=== PATIENT | female | born 1990 | race Caucasian/White ===

== ENCOUNTER 2022-08-04 10:07 | Emergency (ER) | payer MEDICAID ==
[~2022-08-04] VITALS: Ht 154.9 cm; Wt 65.0 kg
[2022-08-04 10:20] VITALS: BP 112/62
[2022-08-04 11:32] LABS: CHLORIDE 104 mEq/L (98-107)
[2022-08-04 11:36] LABS: BASOPHILS % 0.3 % (0.0-2.0); EOSINOPHILS % 1.1 % (0.0-5.0); HEMATOCRIT. 35.8 % (42.0-52.0); HEMOGLOBIN. 11.6 g/dL (14.0-18.0); LYMPHOCYTES % 22.8 % (20.0-50.0); MEAN CORPUSCULAR HEMOGLOBIN 26.1 pg (28.0-32.0); MEAN CORPUSCULAR VOLUME 80.2 fL (80.0-94.0); MEAN PLATELET VOLUME 8.9 fl (7.4-10.4); MONOCYTES % 6.5 % (2.0-8.0); NEUTROPHILS % 69.3 % (40.0-76.0); PLATELET 254 x1000/uL (130-400); RED BLOOD CELL COUNT 4.46 mill/uL (4.7-6.1); RED CELL DISTRIBUTION WIDTH 16.4 % (11.6-14.6)
[2022-08-04 12:02] LABS: B-HCG QUANTITATIVE 120602 mIU/mL (<3)
[2022-08-04 12:46] LABS: COLOR URINE YELLOW (YELLOW)
[2022-08-04 12:47] LABS: CLARITY URINE SL.CLOUDY (CLEAR); KETONES URINE NEGATIVE (NEGATIVE); LEUKOCYTE ESTERASE URINE NEGATIVE (NEGATIVE); NITRITE URINE NEGATIVE (NEGATIVE); OCCULT BLOOD URINE NEGATIVE (NEGATIVE); PROTEIN URINE TRACE (NEGATIVE); SPECIFIC GRAVITY URINE 1.015 (1.005-1.030); UROBILINOGEN URINE 0.2 E.U./dL (0.2-1.0)
[2022-08-04] MEDS ORDERED: CEPH250C2 MT (13:22)
== END 2022-08-04 13:35 | disposition home or self-care (01) ==
LOC: ER 10:07 → EDSEX 10:07 → ER 13:35
DX: O26.891 Other specified pregnancy related conditions, first trimester (principal); R10.2 Pelvic and perineal pain; O26.851 Spotting complicating pregnancy, first trimester; Z3A.09 9 weeks gestation of pregnancy
CPT/HCPCS: 36415; 76801; 80053; 81003; 84702; 85025; 86850; 86900; 99284

== ENCOUNTER 2024-01-30 11:49 | Emergency (ER) | payer MEDICAID ==
[~2024-01-30] VITALS: Ht 154.9 cm; Wt 63.5 kg
[~2024-01-30 11:49] MED LIST: CEPH250C2 MT
[2024-01-30 11:59] VITALS: O2SAT 100
[2024-01-30 15:00] VITALS: BP 113/73; PULSE 88; RESP 17; TEMP 98.1
== END 2024-01-30 16:01 | disposition home or self-care (01) ==
LOC: ER 11:58
DX: O26.891 Other specified pregnancy related conditions, first trimester (principal); R51.9 Headache, unspecified; Z3A.09 9 weeks gestation of pregnancy
CPT/HCPCS: 99281

== ENCOUNTER 2024-06-09 20:42 | Emergency (ER) | payer MEDICAID ==
[~2024-06-09] VITALS: Ht 154.9 cm; Wt 67.0 kg
[2024-06-09 20:53] VITALS: O2SAT 98
[2024-06-09 20:59] VITALS: BP 93/34; PULSE 81; RESP 16; TEMP 98.4; O2SAT 98
[2024-06-09 21:39] LABS: CHLORIDE 108 mEq/L (98-107); SODIUM 138 mEq/L (136-145)
[2024-06-09 21:40] LABS: CALCIUM 9.2 mg/dL (8.7-10.4); CARBON DIOXIDE 26 mEq/L (21-32)
[2024-06-09 21:45] LABS: CREATININE 0.5 mg/dL (0.6-1.0); GLUCOSE 89 mg/dL (70-105)
[2024-06-09 21:47] LABS: ALANINE AMINOTRANSFERASE 14 IU/L (10-49); ASPARTATE AMINOTRANSFERASE 16 IU/L (<34); BILIRUBIN TOTAL 0.4 mg/dL (0.1-1.0); PROTEIN TOTAL 6.7 g/dL (6.0-8.3)
[2024-06-09 21:51] LABS: BASOPHILS % 0.2 % (0.0-2.0); DIFFERENTIAL COMMENT 0; HEMATOCRIT. 28.3 % (36.0-48.0); LYMPHOCYTES % 25.9 % (20.0-50.0); MEAN CORPUSCULAR HEMOGLOBIN 24.7 pg (28.0-32.0); MEAN CORPUSCULAR HGB CONC 31.7 g/dL (31.0-37.0); MEAN PLATELET VOLUME 8.3 fl (7.4-10.4); MONOCYTES % 7.4 % (2.0-8.0); NEUTROPHILS % 64.5 % (40.0-76.0); PLATELET 269 x1000/uL (130-400); RED BLOOD CELL COUNT 3.62 mill/uL (4.2-5.4); WHITE BLOOD COUNT 6.6 x1000/uL (4.5-11.0)
[2024-06-09 21:57] LABS: B-HCG QUANTITATIVE 6065 mIU/mL (<3); UREA NITROGEN BLOOD < 5 mg/dL (9-23)
[2024-06-09] MEDS: METOCLOPRAMIDE HCL 10MG/2ML VIAL IV ONE (22:29)
[2024-06-09] MEDS: ACETAMINOPHEN 325MG TABLET PO ONE (22:29)
[2024-06-09] MEDS: LACTATED RINGERS 1,000 ML IV SCH (22:30)
== END 2024-06-10 00:56 | disposition home or self-care (01) ==
LOC: ER 20:42
DX: O26.893 Other specified pregnancy related conditions, third trimester (principal); R51.9 Headache, unspecified; Z3A.30 30 weeks gestation of pregnancy
CPT/HCPCS: 80053; 84702; 85025; 36415; 70450; 76815; 96361; 96374; 99285; J2765; Z7610 ×2

== ENCOUNTER 2024-07-15 21:54 | Emergency (ER) | payer MEDICAID ==
[~2024-07-15] VITALS: Ht 154.9 cm; Wt 70.9 kg
[2024-07-15 22:40] VITALS: O2SAT 98
[2024-07-15] MEDS ORDERED: ALBU90AE INH (23:32)
[2024-07-15 23:40] VITALS: BP 102/62; PULSE 100; RESP 16; TEMP 36.55848; O2SAT 99
== END 2024-07-15 23:45 | disposition home or self-care (01) ==
LOC: ER 21:54
DX: O99.513 Diseases of the respiratory system complicating pregnancy, third trimester (principal); O26.893 Other specified pregnancy related conditions, third trimester; Z3A.33 33 weeks gestation of pregnancy; Z76.0 Encounter for issue of repeat prescription
CPT/HCPCS: 99281

== ENCOUNTER 2024-07-17 15:17 | Emergency (ER) | payer MEDICAID ==
[~2024-07-17] VITALS: Ht 154.9 cm; Wt 69.0 kg
[~2024-07-17 15:17] MED LIST changes: +ALBU90AE INH
[2024-07-17 15:19] VITALS: O2SAT 98
[2024-07-17 15:54] LABS: BASOPHILS % 0.2 % (0.0-2.0); DIFFERENTIAL COMMENT 0; EOSINOPHILS % 1.8 % (0.0-5.0); HEMATOCRIT. 24.5 % (36.0-48.0); HEMOGLOBIN. 7.6 g/dL (12.0-16.0); LYMPHOCYTES % 19.9 % (20.0-50.0); MEAN CORPUSCULAR HEMOGLOBIN 23.1 pg (28.0-32.0); MEAN CORPUSCULAR HGB CONC 31.2 g/dL (31.0-37.0); MEAN PLATELET VOLUME 8.8 fl (7.4-10.4); MONOCYTES % 9.4 % (2.0-8.0); NEUTROPHILS % 68.7 % (40.0-76.0); PLATELET 197 x1000/uL (130-400); RED BLOOD CELL COUNT 3.31 mill/uL (4.2-5.4); RED CELL DISTRIBUTION WIDTH 17.1 % (11.6-14.6); WHITE BLOOD COUNT 5.8 x1000/uL (4.5-11.0)
[2024-07-17 16:01] LABS: CHLORIDE 106 mEq/L (98-107); POTASSIUM 3.6 mEq/L (3.5-5.1); SODIUM 138 mEq/L (136-145)
[2024-07-17 16:02] LABS: CALCIUM 8.7 mg/dL (8.7-10.4); CARBON DIOXIDE 24 mEq/L (21-32)
[2024-07-17 16:07] LABS: CREATININE 0.5 mg/dL (0.6-1.0); GLUCOSE 91 mg/dL (70-105); UREA NITROGEN BLOOD 5 mg/dL (9-23)
[2024-07-17 16:20] LABS: B-HCG QUANTITATIVE 9979 mIU/mL (<3)
[2024-07-17 17:21] LABS: CLARITY URINE CLEAR (CLEAR); COLOR URINE DARK YELLOW (YELLOW); GLUCOSE URINE NEGATIVE (NEGATIVE); KETONES URINE NEGATIVE (NEGATIVE); LEUKOCYTE ESTERASE URINE 2+ (NEGATIVE); NITRITE URINE NEGATIVE (NEGATIVE); OCCULT BLOOD URINE NEGATIVE (NEGATIVE); PROTEIN URINE TRACE (NEGATIVE); SPECIFIC GRAVITY URINE 1.019 (1.005-1.030)
[2024-07-17 17:22] VITALS: BP 104/72; PULSE 87; RESP 15; TEMP 36.72516; O2SAT 100
[2024-07-17] MEDS ORDERED: CEFP200T14 MT (17:30)
[2024-07-17 17:38] LABS: MUCUS URINE 2+ /lpf (< = 2+); SQUAMOUS EPITHELIAL CELL URINE 2+ /lpf (RARE/1+)
[2024-07-17 17:40] LABS: BACTERIA URINE NONE SEEN; RBC URINE 0-2 /hpf (0-2)
== END 2024-07-17 17:50 | disposition home or self-care (01) ==
LOC: ER 15:17
DX: O23.43 Unspecified infection of urinary tract in pregnancy, third trimester (principal); O47.03 False labor before 37 completed weeks of gestation, third trimester; O24.113 Pre-existing type 2 diabetes mellitus, in pregnancy, third trimester; J45.909 Unspecified asthma, uncomplicated; Z3A.35 35 weeks gestation of pregnancy
CPT/HCPCS: 36415; 76815; 80048; 81003; 81025; 84702; 85025; 86850; 86900; 99285

== ENCOUNTER 2025-01-11 10:14 | Emergency (ER) | payer MEDICAID ==
[~2025-01-11] VITALS: Ht 154.9 cm; Wt 62.0 kg
[~2025-01-11 10:14] MED LIST changes: +CEFP200T14 MT
[2025-01-11 10:16] VITALS: O2SAT 98
[2025-01-11 10:34] VITALS: TEMP 36.9; O2SAT 100
[2025-01-11 11:42] VITALS: BP 114/71; PULSE 77; RESP 18; TEMP 98.5
[2025-01-11] MEDS: KETOROLAC 30MG/ML VIAL IM ONE (11:42)
[2025-01-11] MEDS: ACETAMINOPHEN 325MG TABLET PO ONE (11:42)
[2025-01-11 11:57] LABS: BASOPHILS % 0.2 % (0.0-2.0); DIFFERENTIAL COMMENT 0; EOSINOPHILS % 0.9 % (0.0-5.0); HEMATOCRIT. 35.4 % (36.0-48.0); HEMOGLOBIN. 11.2 g/dL (12.0-16.0); LYMPHOCYTES % 14.7 % (20.0-50.0); MEAN CORPUSCULAR HGB CONC 31.7 g/dL (31.0-37.0); MEAN PLATELET VOLUME 8.5 fl (7.4-10.4); NEUTROPHILS % 78.2 % (40.0-76.0); PLATELET 259 x1000/uL (130-400); RED BLOOD CELL COUNT 4.48 mill/uL (4.2-5.4); RED CELL DISTRIBUTION WIDTH 17.5 % (11.6-14.6); WHITE BLOOD COUNT 9.8 x1000/uL (4.5-11.0)
[2025-01-11 12:13] LABS: CHLORIDE 107 mEq/L (98-107); POTASSIUM 4.1 mEq/L (3.5-5.1); SODIUM 141 mEq/L (136-145)
[2025-01-11 12:14] LABS: CARBON DIOXIDE 28 mEq/L (21-32)
[2025-01-11 12:19] LABS: CREATININE 0.6 mg/dL (0.6-1.0); GLUCOSE 101 mg/dL (70-105); UREA NITROGEN BLOOD 10 mg/dL (9-23)
[2025-01-11 12:48] LABS: HCG SCREEN NEGATIVE
[2025-01-11] MEDS ORDERED: IBUP-2029 PO (14:09)
[2025-01-11] MEDS ORDERED: CEPH500C2 MT (14:09)
[2025-01-11] MEDS ORDERED: TOPUD PO (14:09)
== END 2025-01-11 14:16 | disposition home or self-care (01) ==
LOC: ER 10:14
DX: N61.1 Abscess of the breast and nipple (principal); J45.909 Unspecified asthma, uncomplicated
CPT/HCPCS: 80048; 84703; 85025; 36415; 76641; 96372; 99285; J1885; Z7610

== ENCOUNTER 2025-01-12 07:03 | Inpatient (IN) | payer MEDICAID ==
[2025-01-12] VITALS (13 sets, daily range): BP systolic 87–117; BP diastolic 41–80; PULSE 61–85; RESP 12–20; TEMP 36.7–37.1; O2SAT 96–100
[~2025-01-12] VITALS: Ht 154.9 cm; Wt 61.2 kg
[~2025-01-12 07:03] MED LIST changes: +CEPH500C2 MT; +IBUP-2029 PO; +TOPUD PO
[2025-01-12] MEDS ORDERED: CLINDAMYCIN 600 MG in DEXTROSE 5% WATER 50 ML IV ONE (07:30)
[2025-01-12 08:27] LABS: BASOPHILS % 0.2 % (0.0-2.0); DIFFERENTIAL COMMENT 0; EOSINOPHILS % 1.1 % (0.0-5.0); HEMATOCRIT. 32.5 % (36.0-48.0); HEMOGLOBIN. 10.5 g/dL (12.0-16.0); LYMPHOCYTES % 15.9 % (20.0-50.0); MEAN CORPUSCULAR HEMOGLOBIN 25.3 pg (28.0-32.0); MEAN CORPUSCULAR HGB CONC 32.2 g/dL (31.0-37.0); MEAN CORPUSCULAR VOLUME 78.6 fL (81.0-99.0); MEAN PLATELET VOLUME 8.6 fl (7.4-10.4); MONOCYTES % 7.2 % (2.0-8.0); NEUTROPHILS % 75.6 % (40.0-76.0); PLATELET 240 x1000/uL (130-400); RED BLOOD CELL COUNT 4.13 mill/uL (4.2-5.4); RED CELL DISTRIBUTION WIDTH 17.1 % (11.6-14.6); WHITE BLOOD COUNT 8.5 x1000/uL (4.5-11.0)
[2025-01-12 08:35] LABS: CHLORIDE 108 mEq/L (98-107); POTASSIUM 3.8 mEq/L (3.5-5.1); SODIUM 143 mEq/L (136-145)
[2025-01-12 08:36] LABS: CARBON DIOXIDE 29 mEq/L (21-32)
[2025-01-12 08:37] LABS: CALCIUM 9.7 mg/dL (8.7-10.4)
[2025-01-12 08:41] LABS: CREATININE 0.6 mg/dL (0.6-1.0); GLUCOSE 112 mg/dL (70-105); UREA NITROGEN BLOOD 11 mg/dL (9-23)
[2025-01-12 08:43] LABS: ALANINE AMINOTRANSFERASE 16 IU/L (10-49); ALBUMIN 4.2 g/dL (3.2-4.8); ASPARTATE AMINOTRANSFERASE 15 IU/L (<34)
[2025-01-12 08:44] LABS: BILIRUBIN DIRECT 0.2 mg/dL (<=3.0); BILIRUBIN TOTAL 0.6 mg/dL (0.1-1.0); PROTEIN TOTAL 7.4 g/dL (6.0-8.3)
[2025-01-12] MEDS ORDERED: CLONIDINE 0.1MG TABLET PO PRN (10:00)
[2025-01-12] MEDS ORDERED: DEXTROSE 50% WATER 50ML SYRINGE IV PRN (10:00)
[2025-01-12] MEDS ORDERED: ONDANSETRON HCL 4MG/2ML INJ IV PRN (10:00)
[2025-01-12] MEDS ORDERED: IPRATROPIUM/ALBUTEROL 0.5-3(2.5)MG/3ML NEB HHN PRN (10:00)
[2025-01-12] MEDS ORDERED: LIDOCAINE HCL 1% 10 MG/ML 10ML VIAL ONE (11:08)
[2025-01-12] MEDS ORDERED: CLINDAMYCIN 300 MG in DEXTROSE 5% WATER 50 ML IV SCH (11:15)
[2025-01-12] MEDS: BLOOD SUGAR DIAGNOSTIC STRIP TEST SCH (12:00)
[2025-01-12] MEDS: CLINDAMYCIN 600MG PREMIX 50 ML IV NR (12:06)
[2025-01-12] MEDS ORDERED: FENTANYL CITRATE/PF 50MCG/ML 2ML VIAL ONE (13:01)
[2025-01-12 14:08] LABS: IRON 32 ug/dL (50-170)
[2025-01-12 14:11] LABS: PHOSPHORUS 3.5 mg/dL (2.5-4.9); TOTAL IRON BINDING CAPACITY 389 ug/dl (250-425)
[2025-01-12 14:13] LABS: FERRITIN 11 ng/mL (10-291); FOLIC ACID (FOLATE) SERUM 15.61 ng/mL (>5.38); VITAMIN B12 SERUM 283 pg/mL (211-911)
[2025-01-12 15:42] LABS: HEPATITIS B SURFACE ANTIGEN NEGATIVE (Negative)
[2025-01-12 15:45] LABS: PARTIAL THROMBOPLASTIN TIME 28.8 sec (23.4-31.0); PROTHROMBIN TIME 10.5 sec (9.6-11.0)
[2025-01-12] MEDS: CLINDAMYCIN 600MG PREMIX 50 ML IV SCH (15:51)
[2025-01-12 16:04] LABS: HEPATITIS C AB NON REACTIVE (Neg) (Negative)
[2025-01-12] MEDS: HYDROCODONE/ACETAMINOPHEN 5/325MG TABLET PO NR (16:12)
[2025-01-13] VITALS (7 sets, daily range): BP systolic 93–98; BP diastolic 52–65; PULSE 76–78; RESP 18; TEMP 36.5–37; O2SAT 98–100
[2025-01-13 01:48] LABS: CLARITY URINE CLEAR (CLEAR); COLOR URINE YELLOW (YELLOW); GLUCOSE URINE NEGATIVE (NEGATIVE); KETONES URINE NEGATIVE (NEGATIVE); LEUKOCYTE ESTERASE URINE NEGATIVE (NEGATIVE); NITRITE URINE NEGATIVE (NEGATIVE); OCCULT BLOOD URINE NEGATIVE (NEGATIVE); PROTEIN URINE NEGATIVE (NEGATIVE); SPECIFIC GRAVITY URINE 1.015 (1.005-1.030)
[2025-01-13] MEDS: KETOROLAC 15MG/ML VIAL IV PRN ×2 (08:08→12:31)
[2025-01-13 08:53] LABS: BASOPHILS % 0.2 % (0.0-2.0); DIFFERENTIAL COMMENT 0; EOSINOPHILS % 1.9 % (0.0-5.0); HEMATOCRIT. 31.6 % (36.0-48.0); HEMOGLOBIN. 10.3 g/dL (12.0-16.0); LYMPHOCYTES % 20.3 % (20.0-50.0); MEAN CORPUSCULAR HEMOGLOBIN 25.1 pg (28.0-32.0); MEAN CORPUSCULAR HGB CONC 32.7 g/dL (31.0-37.0); MEAN CORPUSCULAR VOLUME 76.7 fL (81.0-99.0); MEAN PLATELET VOLUME 8.7 fl (7.4-10.4); MONOCYTES % 8.1 % (2.0-8.0); NEUTROPHILS % 69.5 % (40.0-76.0); PLATELET 228 x1000/uL (130-400); RED BLOOD CELL COUNT 4.12 mill/uL (4.2-5.4); RED CELL DISTRIBUTION WIDTH 17.5 % (11.6-14.6); WHITE BLOOD COUNT 6.7 x1000/uL (4.5-11.0)
[2025-01-13 09:23] LABS: CHLORIDE 107 mEq/L (98-107); SODIUM 141 mEq/L (136-145)
[2025-01-13 09:24] LABS: CALCIUM 9.5 mg/dL (8.7-10.4); CARBON DIOXIDE 26 mEq/L (21-32)
[2025-01-13 09:26] LABS: T4 FREE 1.01 ng/dL (0.89-1.76); TRIGLYCERIDE 76 mg/dL (0-150)
[2025-01-13 09:27] LABS: THYROID STIMULATING HORMONE 0.67 uIU/mL (0.55-4.78)
[2025-01-13 09:29] LABS: CREATININE 0.6 mg/dL (0.6-1.0); GLUCOSE 102 mg/dL (70-105); UREA NITROGEN BLOOD 12 mg/dL (9-23)
[2025-01-13 09:30] LABS: LDL CHOLESTEROL 89 mg/dL (5-100)
[2025-01-13 09:31] LABS: ALANINE AMINOTRANSFERASE 13 IU/L (10-49); ALBUMIN 3.7 g/dL (3.2-4.8); ASPARTATE AMINOTRANSFERASE 13 IU/L (<34); BILIRUBIN DIRECT 0.2 mg/dL (<=3.0); BILIRUBIN TOTAL 0.6 mg/dL (0.1-1.0); CHOLESTEROL 155 mg/dL (<200); HDL CHOLESTEROL 53 mg/dL (>65)
[2025-01-13 09:32] LABS: PROTEIN TOTAL 6.7 g/dL (6.0-8.3)
[2025-01-14] VITALS: BP 90/54; PULSE 80; RESP 16; TEMP 36.5; O2SAT 100
[2025-01-14 04:00] VITALS: BP 84/54; PULSE 60; RESP 16; TEMP 36.8; O2SAT 100
[2025-01-14 08:00] VITALS: BP 95/59; PULSE 77; RESP 20; TEMP 36.4; O2SAT 100
[2025-01-14 12:00] VITALS: BP 103/53; PULSE 66; RESP 20; TEMP 36.2; O2SAT 96
[2025-01-14 14:35] VITALS: BP 103/53; PULSE 66; TEMP 97.2; O2SAT 96
== END 2025-01-14 15:32 | disposition home or self-care (01) | DRG 385 ==
LOC: ER 07:03 → 8EST 09:07
PROVIDERS: ADMIT Hospitalist; ATTEND Hospitalist
PROC: 0H9T3ZZ Drainage of Right Breast, Percutaneous Approach (ICD-10-PCS; principal; 2025-01-12)
DX: N61.1 Abscess of the breast and nipple (principal); D50.9 Iron deficiency anemia, unspecified; J45.909 Unspecified asthma, uncomplicated
CPT/HCPCS: 36415; 71045; 80048; 80061; 80076; 81003; 82607; 82728; 82746; 82962; 83036; 83540; 83550; 83605; 83735; 84100; 84145; 84439; 84443; 85025; 86705; 86850; 86900; 87076; 87340; 93005; 99152; 99153; 99285; A4606; J1885; J2003; J3010; J3490; J7060; G0500

== ENCOUNTER 2025-07-24 09:30 | Emergency (ER) | payer MEDICAID ==
[~2025-07-24] VITALS: Ht 154.9 cm; Wt 62.0 kg
[~2025-07-24 09:30] MED LIST changes: +IBUP-1455 PO; -IBUP-2029 PO
[2025-07-24 09:39] VITALS: O2SAT 99
[2025-07-24] MEDS: CEFTRIAXONE SODIUM 500MG VIAL IM ONE (10:34)
[2025-07-24 10:47] LABS: CLARITY URINE CLOUDY (CLEAR); COLOR URINE YELLOW (YELLOW); GLUCOSE URINE NEGATIVE (NEGATIVE); KETONES URINE NEGATIVE (NEGATIVE); LEUKOCYTE ESTERASE URINE 2+ (NEGATIVE); NITRITE URINE NEGATIVE (NEGATIVE); OCCULT BLOOD URINE NEGATIVE (NEGATIVE); PH URINE 6.5 (4.5-8.0); PROTEIN URINE NEGATIVE (NEGATIVE); SPECIFIC GRAVITY URINE 1.015 (1.005-1.030); UROBILINOGEN URINE 0.2 E.U./dL (0.2-1.0)
[2025-07-24 10:58] LABS: BACTERIA URINE 2+; RBC URINE 0-2 /hpf (0-2); SQUAMOUS EPITHELIAL CELL URINE 3+ /lpf (RARE/1+); YEAST URINE NONE SEEN
[2025-07-24 11:10] VITALS: BP 113/67; PULSE 65; RESP 18; TEMP 36.9; O2SAT 99
[2025-07-24 11:11] LABS: HCG SCREEN NEGATIVE
[2025-07-25 06:12] LABS: HSV TYPE 2 SPECIFIC AB IGG Reactive (Non Reactive)
[2025-07-25 15:10] LABS: CHLAMYDIA TRACHOMATIS NAA Negative (Negative); NEISSERIA GONORRHOEAE NAA Negative (Negative)
== END 2025-07-24 11:15 | disposition home or self-care (01) ==
LOC: ER 09:59
DX: Z11.3 Encounter for screening for infections with a predominantly sexual mode of transmission (principal); J45.909 Unspecified asthma, uncomplicated
CPT/HCPCS: 86695; 86696; 87491; 87591; 81003; 81025; 84703; 86592; 87086; 87077; 36415; 96372; 99283; J0696; Z7610